=== PATIENT | male | born 1985 ===

== ENCOUNTER 2022-04-18 19:21 | Emergency (ER) | payer SELFPAY ==
[2022-04-18] MEDS ORDERED: Clindamycin HCl 150 MG Cap PO ONE (19:22)
[2022-04-18] MEDS ORDERED: Clindamycin HCl 150 MG Cap ONE (20:06)
== END 2022-04-18 20:12 | disposition home or self-care (01) ==
LOC: DL.ED 19:21
DX: K04.7 Periapical abscess without sinus (principal)
CPT/HCPCS: 99282; A9270

== ENCOUNTER 2022-10-19 10:40 | Emergency (ER) | payer MEDICAID ==
[2022-10-19] MEDS ORDERED: Diphtheria,Pertussis(Acell),Tetanus Vaccine 0.5 ML Syringe IM ONE (10:49)
[2022-10-19] MEDS ORDERED: Lidocaine 1% 10 ML MDV INJECT ONE (10:49)
[2022-10-19 10:59] VITALS: BP 135/87; PULSE 86
[2022-10-19] MEDS ORDERED: Bacitracin Oint 1 GM U/D Packet TOP ONE (11:22)
== END 2022-10-19 11:40 | disposition home or self-care (01) ==
LOC: DL.ED 10:40
DX: S61.210A Laceration without foreign body of right index finger without damage to nail, initial encounter (principal); Z23 Encounter for immunization; W25.XXXA Contact with sharp glass, initial encounter
CPT/HCPCS: 12001; 73130-RT; 90471; 90715; 99283; 99283-25; A9270-GY; J3490

== ENCOUNTER 2022-10-20 17:39 | Emergency (ER) | payer MEDICAID | END 2022-10-20 17:43 | disposition left against medical advice (07) | LOC: DL.ED 17:39 | DX: Z53.21 Procedure and treatment not carried out due to patient leaving prior to being seen by health care provider (principal) ==

== ENCOUNTER 2022-10-28 10:47 | Emergency (ER) | payer MEDICAID | END 2022-10-28 11:11 | disposition home or self-care (01) | LOC: DL.ED 10:47 | DX: S61.210D Laceration without foreign body of right index finger without damage to nail, subsequent encounter (principal); W25.XXXD Contact with sharp glass, subsequent encounter | CPT/HCPCS: 99281; 99282 ==

== ENCOUNTER 2023-01-01 17:27 | Emergency (ER) | payer MEDICAID ==
[2023-01-01] MEDS ORDERED: Ciprofloxacin 500 MG Tab PO ONE (17:28)
[2023-01-01] MEDS ORDERED: Ciprofloxacin 500 MG Tab ONE (19:01)
== END 2023-01-01 19:03 | disposition home or self-care (01) ==
LOC: DL.ED 17:27
DX: N39.0 Urinary tract infection, site not specified (principal)
CPT/HCPCS: 81001; 87086; 99283; 99284; A9270-GY

== ENCOUNTER 2023-02-28 01:29 | Emergency (ER) | payer MEDICAID | END 2023-02-28 01:54 | disposition left against medical advice (07) | LOC: DL.ED 01:29 | DX: R41.82 Altered mental status, unspecified (principal) | CPT/HCPCS: 99285 ==

== ENCOUNTER 2024-04-08 10:07 | Emergency (ER) | payer MEDICAID ==
[2024-04-08] MEDS: Erythromycin Base 0.5% Ophth Oint 3.5 GM Tube EYEBOTH ONE (12:28)
== END 2024-04-08 12:43 | disposition home or self-care (01) ==
LOC: DL.ED 10:07
DX: H10.33 Unspecified acute conjunctivitis, bilateral (principal)
CPT/HCPCS: 99283; A9270